=== PATIENT | female | born 1985 | race African-American/Black ===

== ENCOUNTER 2016-12-11 19:06 | Emergency (ER) | payer OTHER ==
[~2016-12-11 19:06] MED LIST: AMOXICILLIN PO; AMOXICILLIN500 M1 PO; BENADRYL25 M3 PO; BENTYL20 MG PO; CIPRO PO; COLACE PO; FIORICET 50-321 EACH; FLEXERIL; FLUCONAZOLE150 M1 PO; HYDROCORTISONE30 G1 EXT; IRON TABLET PO; IRON1 TAB; KEFLEX500 MG PO; MIRALAX17 GM PO; MOTRIN600 M1 PO; NAPROXEN; NO MEDICATIONS; NORCO 7.5-3251 EACH; OMEPRAZOLE20 M1 PO; PEPCID AC20 M2 PO; PERCOCET5/325 PO; PHENERGAN PO; PHENERGAN25 M1 DOB; PHENERGAN25 MG PO; PREDNISONE PO; PRENATAL MULTIV1 TA1 PO; PRENATAL1 TA1 PO; PRILOSEC PO; PRILOSEC20 M1 PO; ROBITUSSIN A-C-S1 ML PO; TESSALON200 MG PO; TOPAMAX PO; TYLENOL #3 PO; ZANTAC PO; ZITHROMAX PO; ZYRTEC PO; ZYRTEC10 M2 PO
[2016-12-11 19:21] LABS: INFLUENZA A POS (NEG); INFLUENZA B NEG (NEG)
== END 2016-12-11 19:58 | disposition home or self-care (01) ==
LOC: SED 19:06
PROVIDERS: Emergency Medicine
DX: J11.1 Influenza due to unidentified influenza virus with other respiratory manifestations (principal)
CPT/HCPCS: 87804; 99283